=== PATIENT | male | born 1950 | race Caucasian/White ===

== ENCOUNTER 2017-12-12 10:30 | Inpatient (IN) | payer BC ==
[2017-12-19] MEDS ORDERED: MECLIZINE 25 MG TABLET PO ONE (06:00)
[2017-12-19] MEDS ORDERED: CEFAZOLIN 2 Gram 2 GM/50 ML BAG IVPB ONE (06:00)
[2017-12-19] MEDS ORDERED: FAMOTIDINE 20MG TABLET PO ONE (06:00)
[2017-12-19] MEDS ORDERED: VANCOMYCIN HCL 1,000 MG in DEXTROSE 5 % IN WATER 250 ML IVPB ONE ×2 (06:00)
[2017-12-19] MEDS ORDERED: METOCLOPRAMIDE 10 MG TABLET PO ONE (06:00)
[2017-12-19] MEDS ORDERED: CELECOXIB 100 MG CAPSULE PO ONE (06:00)
[2017-12-19 11:49] LABS: ABO GROUP B; ANTIBODY SCREEN NEGATIVE (NEGATIVE); RH TYPE POSITIVE
[2017-12-19] MEDS ORDERED: MIDAZOLAM HCL 2MG/2ML VIAL IV ONE (14:00)
[2017-12-19] MEDS ORDERED: BUPIVACAINE 0.5% W/EPI MPF 30 ML VIAL IVP ONE (14:00)
[2017-12-19] MEDS ORDERED: KETOROLAC 30 MG/ML VIAL IVP ONE (14:00)
[2017-12-19] MEDS ORDERED: 0.9 % SODIUM CHLORIDE 10 ML VIAL IVP ONE (14:00)
[2017-12-19] MEDS ORDERED: TRANEXAMIC ACID 1,000 MG/10 ML ML IV ONE ×2 (14:00)
[2017-12-19] MEDS ORDERED: ROPIVACAINE HCL (NAROPIN) /PF 5MG/ML 20ML VIAL IV ONE (14:00)
[2017-12-19] MEDS ORDERED: LIDOCAINE 1% MDV (10MG/ML) 20ML VIAL SQ ONE (14:00)
[2017-12-19] MEDS ORDERED: DEXAMETHASONE 4 MG/ML 1ML VIAL IVP ONE (14:00)
[2017-12-19] MEDS ORDERED: ACETAMINOPHEN W/ CODEINE 300MG/60MG TABLET PO PRN ×2 (15:29)
[2017-12-19] MEDS ORDERED: HYDROMORPHONE HCL 2 MG/ML VIAL IM PRN (15:29)
[2017-12-19] MEDS ORDERED: ACETAMINOPHEN 325 MG TAB PO PRN (15:29)
[2017-12-19] MEDS ORDERED: TRAMADOL HCL 50 MG TABLET PO PRN (15:29)
[2017-12-19] MEDS ORDERED: MAGNESIUM HYDROXIDE 30 ML UDC PO PRN (15:29)
[2017-12-19] MEDS ORDERED: ONDANSETRON HCL IV 4 MG/2 ML VIAL IVP PRN (15:29)
[2017-12-19] MEDS ORDERED: NALOXONE 0.4 MG/1 ML VIAL IVP PRN (15:29)
[2017-12-19] MEDS ORDERED: HYDROCODONE/APAP 10/325 TABLET PO PRN (15:29)
[2017-12-19] MEDS ORDERED: KETOROLAC 30 MG/ML VIAL IVP PRN ×2 (15:29)
[2017-12-19] MEDS ORDERED: AL HYDROX/MAG HYDROX 30ML UD PO PRN (15:29)
[2017-12-19] MEDS ORDERED: DIPHENHYDRAMINE HCL 25 MG CAPSULE PO PRN (15:29)
[2017-12-19] MEDS ORDERED: ZOLPIDEM TARTRATE 5 MG TABLET PO PRN (15:29)
[2017-12-19] MEDS ORDERED: BISACODYL 10 MG SUPP RC PRN (15:29)
[2017-12-19] MEDS ORDERED: PNEUM 23-VAL ADULT IM ONE (16:57)
[2017-12-19] MEDS: HYDROCODONE/APAP 10/325 TABLET PO PRN ×2 (17:12→21:17)
[2017-12-19] MEDS: CEFAZOLIN 2 Gram 2 GM/50 ML BAG IVPB SCH (20:07)
[2017-12-19] MEDS: POTASSIUM CHLORIDE/D5-0.9%NACL 20 MEQ/1,000 ML BAG IV SCH (21:15)
[2017-12-19] MEDS: DOCUSATE SODIUM 100 MG CAPSULE PO SCH (21:17)
[2017-12-19] MEDS ORDERED: TAMSULOSIN HCL 0.4 MG CAP.ER.24H PO SCH (22:00)
[2017-12-20] MEDS: HYDROCODONE/APAP 10/325 TABLET PO PRN ×4 (00:58→13:32)
[2017-12-20] MEDS: POTASSIUM CHLORIDE/D5-0.9%NACL 20 MEQ/1,000 ML BAG IV SCH ×2 (04:56→10:35)
[2017-12-20] MEDS: CEFAZOLIN 2 Gram 2 GM/50 ML BAG IVPB SCH ×2 (05:01→13:40)
[2017-12-20 06:57] LABS: HEMATOCRIT 35.9 % (42.0-52.0); HEMOGLOBIN 12.7 gm/dl (14.0-18.0)
[2017-12-20 07:14] LABS: BLOOD UREA NITROGEN 22 mg/dL (8-23); CREATININE 1.1 mg/dL (0.7-1.2); EST GLOMERULAR FILTRATION RATE > 60 mL/min; GLUCOSE,RANDOM 146 mg/dL (74-109)
[2017-12-20] MEDS: DOCUSATE SODIUM 100 MG CAPSULE PO SCH (09:00)
[2017-12-20] MEDS ORDERED: AMLODIPINE BESYLATE 5MG TAB PO SCH (10:00)
[2017-12-20] MEDS ORDERED: RIVAROXABAN 10 MG TABLET PO SCH (10:00)
[2017-12-20] MEDS ORDERED: BENAZEPRIL 20 MG TABLET PO SCH (10:00)
[2017-12-20] MEDS ORDERED: FERROUS SULFATE 325 MG TAB PO SCH (10:00)
--- NOTE | 2017-12-20 10:11 | Rehab Evaluation ---
Patient Information - Patient Information Diagnosis: R knee DJD Ordered Treatment: PT Evaluate and Treat Status: Initial Evaluation Surgery: Yes (R TKA) Date of Surgery: 12/19/17 Past Medical/Surgical Hx: PAST MEDICAL/SURGICAL HISTORY Past Surgical History kidney stones retreival x's 2 PMH - Respiratory Hx Respiratory Disorders Yes Hx Bronchitis Yes PMH - Cardiovascular Hx Cardiovascular Disorders Yes Hx Hypertension Yes: on meds good control Exercise Tolerance Good Comment: low heart rate due to regular exercise PMH - Neuro Hx Neurological Disorders No PMH - GI Hx Gastrointestinal Disorders No PMH - Hx Genitourinary Disorders Yes Hx Kidney Stones Yes Hx Prostate Problems Yes: BPH PMH - Endocrine Hx Endocrine Disorders No PMH - Musculoskeletal Hx Musculoskeletal Disorders Yes Hx Arthritis Yes: right knee and shoulders PMH - Psych Hx Psychiatric Problems No PMH - Hematology/Oncology Hx Hematology/Oncology No Disorders Premorbid Status: Detail (The patient was independent with all mobility prior to surgery.) Social History: Detail (The patient lives with spouse in a 2 story home with bedroom and bathroom on the second floor. The patient's home has 3 steps at the enterance with a platform in between. The patient's bathroom is equipped with a tub/shower combination and an elevated toilet seat with no grab bars. The patient has a walker with wheels.) Precautions: [place], Fall, Other (WBAT on the R LE.) - Time With Patient Total Time Spent With Patient (Min): 30 Treatment Procedures: Detail (Initial Evaluation, gait training.) Subjective Information - Subjective Information Per Patient (The patient had complaints of knee pain level 4 which increased during ambulation.) Objective Data - Mental Status Patient Orientation: Oriented x3 - Visual Perception Appears within normal limits for therapeutic activities - ROM Not within normal limits (The patient's R knee AROM is limited as to be expected following surgery and was not formally measured. All other LE AROM is WNL.) - Strength/Tone Not within normal limits (The patient's R LE strength was not formally tested secondary to s/p surgery , however was functional ie: patient was able to acheive a SLR. The patient's L LE strength was generally 5/5.) - Bed Mobility Independent (The patient was independent with supine to and from sit transfer.) - Transfers Independent (The patient was independent with sit to and from stand transfer.) - Balance Balance Sitting: Good Balance Standing: Good - Sensation Intact - Gait Detail (The patient ambulated independently with 2 wheeled walker WBAT on the R LE with occasional verbal cues to push walker and not walk with it lifted up, a distance of 108 feet. The patient ambulated on 2 flights of stairs, one flight of 3 and one flight of 7 with use of one railing and folded walker independently( supervision for safety only).) Therapy Assessment - Therapy Assessment Detail (The patient was independent with bed mobility, transfers and ambulation. The patient was independent with HEP of TKA exercises. The patient has met all inpatient PT goals. The patient is to receive Home PT.) Patient Education - Patient Education Teaching Topic: Exercise/Activity (The patient completed the following TKA exercises: seated heel slides, quad sets, gluteal sets, hamstring sets, and SLR. ) Response: Return Demonstration Teaching Method: Demonstration, Handout Teaching Recipient: Patient Barriers To Learning: None Problem List - Problem List Physical Therapy Problem List: Detail (1) decreased R knee AROM and strength as to be expected following surgery.) Goals - Goals Physical Therapy Goals: The patient has met all inpatient PT goals. Prognosis - Prognosis Good Plan - Plan Physical Therapy Plan: The patient has met all inpatient goals and is discharged from inpatient PT.
--- NOTE | 2017-12-20 10:43 | Rehab Evaluation ---
Patient Information - Patient Information Diagnosis: R knee DJD Ordered Treatment: OT Evaluate and Treat Status: Initial Evaluation Surgery: Yes (R TKA) Date of Surgery: 12/19/17 Past Medical/Surgical Hx: PAST MEDICAL/SURGICAL HISTORY Past Surgical History kidney stones retreival x's 2 PMH - Respiratory Hx Respiratory Disorders Yes Hx Bronchitis Yes PMH - Cardiovascular Hx Cardiovascular Disorders Yes Hx Hypertension Yes: on meds good control Exercise Tolerance Good Comment: low heart rate due to regular exercise PMH - Neuro Hx Neurological Disorders No PMH - GI Hx Gastrointestinal Disorders No PMH - Hx Genitourinary Disorders Yes Hx Kidney Stones Yes Hx Prostate Problems Yes: BPH PMH - Endocrine Hx Endocrine Disorders No PMH - Musculoskeletal Hx Musculoskeletal Disorders Yes Hx Arthritis Yes: right knee and shoulders PMH - Psych Hx Psychiatric Problems No PMH - Hematology/Oncology Hx Hematology/Oncology No Disorders Premorbid Status: Detail (The patient was independent with all mobility prior to surgery.) Social History: Detail (The patient lives with spouse in a 2 story home with bedroom and bathroom on the second floor. There is a half bath on the main floor with a 16 inch toilet seat. The patient's home has 3 steps at the enterance with a platform/sidewalk in between each step. The patient's bathroom is equipped with a tub/shower combination with a shower stool available if needed. Shower has a fixed head. Pt. says there is a towel bar fixed in the shower to hold if needed (educ. provided regarding safety). Pt. has a toilet riser for the standard toilet in main bathroom (2nd floor) if needed. The patient has a walker with wheels. Pt. reports will be available to assist if needed. Pt. enjoys swimming for exercise and plans to return to pool [place]; interested in aquatic therapy when he begins out pt. rehab.) Precautions: [place], Fall, Other (WBAT on the R LE.) - Time With Patient Total Time Spent With Patient (Min): 25 Treatment Procedures: Detail (OT SANJIV FINCH. Session was concluded with pt. seated in arm chair and call light within reach and all needs met.) Objective Data - Pain Pain Present: Yes Pain Scale Used: Numeric (1 - 10) (6/10 prior to session; nursing staff was administering meds upon arrival.) - Mental Status Patient Orientation: Oriented x3 - Visual Perception Appears within normal limits for therapeutic activities - ROM Within normal limits (BUE) - Strength/Tone Within normal limits (BUE MMT 5/5.) - Coordination Appears within normal limits for therapeutic activities - Bed Mobility Independent (supine to sit EOB) - Transfers Independent (sit<>stand EOB to walker and arm chair to walker.) - Balance Balance Sitting: Good Balance Standing: Fair - Sensation Intact (BUE fingertips light touch intact.) - ADL's/IADL's Detail (Educ. provided in adaptive dressing techniques and use of proofsheet corrector and where to obtain if needed. Pt. plans to sponge bath first day or two until feels comfortable enough to shower standing. Pt. typically dresses while standing. Educ. provided to dress while seated, and stand to pull up LB garments. Pt. demo. ability to dress total body (doff hosital gown, don t-shirt , shorts, undergarments, and shoes) Ind.) Therapy Assessment - Therapy Assessment Detail (In-pt. OT services not required at this time. Pt. has home-care set up with PT and OT, and plans to have for 1 week then cont. PT in an out-pt. clinic. Pt. has a positive support system and assistance if needed. Pt. demo. ability to safely dress Ind. and verbalized understanding of educ. provided.) Patient Education - Patient Education Teaching Topic: Equipment Use (proofsheet corrector), Other (adaptive dressing techniques) Response: Return Demonstration, Verbalize Understanding Teaching Method: Discussion, Demonstration Teaching Recipient: Patient Barriers To Learning: None Prognosis - Prognosis Good Plan - Plan Occupational Therapy Plan: D/C from in-pt. OT services.
--- NOTE | 2017-12-20 21:46 | Discharge Summary ---
DATE OF ADMISSION: 12/19/2017 DATE OF DISCHARGE: 12/20/2017 DATE OF SURGERY: 12/19/2017 HISTORY: Mr. Padgett is a delightful 67-year-old male who presents with end-stage arthrosis of his right knee. He was admitted after right total knee arthroplasty. Postoperatively he did well. His hospital course was unremarkable. Discharge hemoglobin was 12.7. He did not require transfusion. DISCHARGE INSTRUCTIONS: The plan is to discharge him to home in the care of his family. Home PT and Visiting Nurse has been arranged. He will be given Xarelto followed by Aspirin for DVT prophylaxis. He will follow-up in my office in four weeks. He will be given [place] for pain. His discharge condition was good. FINAL DIAGNOSIS/PRIMARY DIAGNOSIS: END-STAGE ARTHROSIS OF THE RIGHT KNEE. OPERATIONS AND PROCEDURES: CEMENTED RIGHT TOTAL KNEE ARTHROPLASTY. JOB NUMBER: [id number] MTDD
--- NOTE | 2017-12-22 07:07 | Operative Note ---
DATE: 12/19/2017. PREOPERATIVE DIAGNOSIS: ENDSTAGE ARTHROSIS OF THE RIGHT KNEE. POSTOPERATIVE DIAGNOSIS: ENDSTAGE ARTHROSIS OF THE RIGHT KNEE. PROCEDURE: Cemented right total knee arthroplasty using [employer] II components with a size 6 Oxinium femur, a size 6 stemmed tibial baseplate, a 9-mm lipped tibial insert, and a 35-mm all-plastic patella. STAFF SURGEON: Rudi Hudson M.D. ANESTHESIA: SPINAL. PREPARATION: ChloraPrep. INDIVIDUAL CONSIDERATIONS: None. PROCEDURE: The patient was taken to the operating room and placed supine on the operating table. He had successful induction of a spinal anesthetic. His right lower extremity was prepped and draped in the usual fashion. The patient had a midline approach to the knee. The limb was elevated. The tourniquet was inflated to 250 mm Hg. Sharp dissection was carried down through the skin and subcutaneous tissues. Small veins were coagulated with a Bovie. A medial arthrotomy was performed. The patella was everted and the knee was flexed. The patient had exposed bone with bone loss in the medial and patellofemoral compartments. The fat pad was resected, the anterior cruciate ligament was sacrificed, and provisional anterior meniscectomies were performed. The capsule was released from the medial proximal tibia. The initial femoral airline transport pilot hole was then made freehand. The intramedullary femoral cutting jig was placed. It was cut in 7.0 degrees of valgus, adjusted for rotation, and secured with pins for a 10 mm resection. The initial transverse cut was then made. The skin guide was placed through the anterior and posterior airline transport pilot holes. It was found that a size 6 would be appropriate. The anterior and posterior cuts followed by chamfer cuts were made. Osteophytes were removed, and a size 6 trial was placed and was found to fit well. The tibia was brought forward and the remainder of the meniscal remnants were removed with a Bovie. The extra-articular tibial cutting jig was placed, and it was cut in neutral with a 3-degree AP slope. Care was taken to adjust for rotation and flexion using the extra-articular alignment guide and bony landmarks. It was set for a 9 mm resection, keyed off the high lateral side, and secured with pins. When cutting the tibia, care was taken to preserve the posterior cruciate ligament insertion on the tibia. After removing osteophytes I could fit a size 6. I adjusted for rotation and secured it with pins. With a 9 mm trial and the femoral trial, there was excellent motion and stability. Ligamentous balance, rotation, and alignment were thought to be normal. The femoral airline transport pilot holes were then impacted and the triflange tibial stamp was impacted, and these trial components were removed. The patient had a thick patella, and roughly 9.0 mm of bone was removed freehand. I was easily able to fit a 35 patella, and the three airline transport pilot holes were drilled. The tourniquet was let down briefly to get the bleeders posteriorly and was then placed back up again. The knee was then thoroughly irrigated out with pulsatile Betadine and saline to remove any visual or palpable debris. Bony surfaces were then dried. A size 6 stemmed tibial baseplate was cemented into place, followed by impaction of the 9 mm lipped highly crosslinked tibial insert, followed by cementing in the size 6 Oxinium femur followed by cementing in the 35 mm all-plastic patella. Implant surfaces were compressed and excess cement was removed. After the cement had set, there was excellent motion and stability. Ligamentous balance, rotation, alignment, and patellofemoral tracking were normal, and no lateral release was required. After irrigation the tourniquet was let down and hemostasis was obtained with the Bovie. I then took 30 mL of Marcaine with epinephrine and infiltrated the periosteum, skin, and subcutaneous tissues. The capsule was then closed with a running #2 Quill, the subcutaneous was closed with #2-0+ Vicryl, and the skin was closed with emory. The patient did receive 1.0 gm of tranexamic acid IV prior to the procedure. I mixed 1.0 gm of tranexamic acid with 30 mL of saline and injected it into the knee through a sterile 18- gauge needle. A sterile Bulkee compressive LARRY dressing was applied. He was taken back to Recovery in good condition. There were no complications. JOB NUMBER: [id number] [facility]
== END 2017-12-20 15:10 | disposition home or self-care (01) | DRG 470 ==
LOC: MEDSURG 12-19 10:44 → UNDOADMIN 12-19 10:44 → MEDSURG 12-19 10:45
PROVIDERS: ADMIT Orthopaedic Surgery; ATTEND Orthopaedic Surgery
PROC: 0SRC069 Replacement of Right Knee Joint with Oxidized Zirconium on Polyethylene Synthetic Substitute, Cemented, Open Approach (ICD-10-PCS; principal; 2017-12-19 13:00)
DX: M17.11 Unilateral primary osteoarthritis, right knee (principal); I10 Essential (primary) hypertension; N40.0 Benign prostatic hyperplasia without lower urinary tract symptoms
CPT/HCPCS: 80048; 85014; 85018; 86850; 86900; 86901; J1885; J3480; J7060